=== PATIENT | female | born 1950 | race Caucasian/White ===

== ENCOUNTER → 2020-03-27 | Outpatient (CLI) | payer MEDICARE, OTHER ==
[2020-03-27 08:36] LABS: ALBUMIN 4.3 g/dL (3.5-5.0); ALKALINE PHOSPHATASE 49 U/L (38-126); ANION GAP 7 (5-19); ASPARTATE AMINO TRANSFERASE 27 U/L (14-36); BILIRUBIN,TOTAL 0.3 mg/dL (0.2-1.3); BLOOD UREA NITROGEN 12 mg/dL (7-20); CALCIUM 9.7 mg/dL (8.4-10.2); CARBON DIOXIDE 21 mmol/L (22-30); CHLORIDE 107 mmol/L (98-107); CHOLESTEROL 148.73 mg/dL (0-200); GLUCOSE 117 mg/dL (75-110); POTASSIUM 4.6 mmol/L (3.6-5.0); TOTAL PROTEIN 7.5 g/dL (6.3-8.2); TRIGLYCERIDES 121 mg/dL (<150)
[2020-03-27 08:48] LABS: DIRECT LDL 81 mg/dL (<100)
== END ==
LOC: OD 07:28
PROVIDERS: ATTEND Physician Assistant
DX: I25.10 Atherosclerotic heart disease of native coronary artery without angina pectoris (principal); I10 Essential (primary) hypertension; R07.9 Chest pain, unspecified; Q25.44 Congenital dilation of aorta; Z79.899 Other long term (current) drug therapy
CPT/HCPCS: 36415; 80048; 80061; 80076

== ENCOUNTER → 2020-05-07 | Outpatient (CLI) | payer MEDICARE, OTHER ==
[2020-05-07 11:37] LABS: HEMATOCRIT 33.5 % (36.0-47.0); HEMOGLOBIN 11.5 g/dL (12.0-15.5); MEAN CORPUSCULAR HEMOGLOBIN 27.9 pg (27.0-33.4); MEAN CORPUSCULAR HGB CONC 34.5 g/dL (32.0-36.0); MEAN CORPUSCULAR VOLUME 81 fl (80-97); PLATELET COUNT 222 10^3/uL (150-450); RED BLOOD COUNT 4.13 10^6/uL (3.72-5.28); RED CELL DISTRIBUTION WIDTH 15.8 % (11.5-14.0); WHITE BLOOD COUNT 6.8 10^3/uL (4.0-10.5)
[2020-05-07 11:43] LABS: INTERNATIONAL RATION (INR) 1.03; PROTHROMBIN TIME 13.7 SEC (11.4-15.4)
[2020-05-07 11:44] LABS: PARTIAL THROMBOPLASTIN TIME 30.2 SEC (23.5-35.8)
[2020-05-07 11:58] LABS: ANION GAP 7 (5-19); BLOOD UREA NITROGEN 16 mg/dL (7-20); CALCIUM 9.7 mg/dL (8.4-10.2); CARBON DIOXIDE 23 mmol/L (22-30); CHLORIDE 108 mmol/L (98-107); GLUCOSE 105 mg/dL (75-110); POTASSIUM 4.5 mmol/L (3.6-5.0)
== END ==
LOC: OD 10:33
PROVIDERS: ATTEND Physician Assistant
DX: Z01.810 Encounter for preprocedural cardiovascular examination (principal); R07.89 Other chest pain; Z79.01 Long term (current) use of anticoagulants
CPT/HCPCS: 36415; 80048; 85027; 85610; 85730

== ENCOUNTER → 2020-05-30 | Outpatient (CLI) | payer MEDICARE, OTHER ==
[2020-05-30 09:52] LABS: HEMOGLOBIN 11.2 g/dL (12.0-15.5); MEAN CORPUSCULAR HEMOGLOBIN 27.5 pg (27.0-33.4); MEAN CORPUSCULAR HGB CONC 33.9 g/dL (32.0-36.0); MEAN CORPUSCULAR VOLUME 81 fl (80-97); PLATELET COUNT 228 10^3/uL (150-450); RED BLOOD COUNT 4.06 10^6/uL (3.72-5.28)
[2020-05-30 10:16] LABS: APPEARANCE,URINE SLIGHTLY-CLOUDY; BILIRUBIN,URINE NEGATIVE (NEGATIVE); COLOR,URINE YELLOW; GLUCOSE, URINE NEGATIVE (NEGATIVE); KETONES,URINE NEGATIVE (NEGATIVE); LEUKOCYTE ESTERASE,URINE MODERATE (NEGATIVE); NITRITE,URINE NEGATIVE (NEGATIVE); PROTEIN,URINE NEGATIVE (NEGATIVE); URINE SPECIFIC GRAVITY 1.015; UROBILINOGEN,URINE NEGATIVE mg/dL (<2.0)
== END ==
LOC: OD 09:03
PROVIDERS: ATTEND Physician Assistant
DX: R35.0 Frequency of micturition (principal); R53.83 Other fatigue
CPT/HCPCS: 36415; 81001; 85027